=== PATIENT | female | born 1960 | race Two or more races ===

== ENCOUNTER → 2018-07-19 | Day surgery (SDC) | payer OTHER ==
[~2018-07-19] MED LIST: GLIM2TAB2 PO; INSU100V8 SQ; IV RINGERS,LACTATED 1000ML 1,000 ML IV SCH; LIDOCAINE 2% PF 5 ML VIAL. ONE; LIRA0.6P2 SQ; PROPOFOL 60 ML IV ONE
[2018-07-19 11:17] VITALS: BP 126/61
--- NOTE | 2018-07-20 17:07 | PATHOLOGY ---
[facility] Accession Number: [id number] . 01 Material submitted: . PART A: duodenum - 2ND PORTION DUODENUM. Modifiers: second PART B: duodenum bulb - DUODENAL BULB BIOPSY PART C: stomach - GASTRIC ANTRUM BIOPSY PART D: esophagus - DISTAL ESOPHAGUS BIOPSY. Modifiers: distal PART E: ileum - TERMINAL ILEUM BIOPSY PART F: colon - RIGHT COLON BIOPSY. Modifiers: right PART G: colon - LEFT COLON BIOPSY. Modifiers: left PART H: rectum - RECTAL POLYP . 01 Clinical history: . Nausea, abdomen pain/screening Esophagitis, see Dr. tompkins . 02 Diagnosis: A. Duodenal biopsies, second portion duodenum: - No significant pathologic abnormalities. . B. Duodenal biopsy, duodenal bulb: - Gastric heterotopia with mild chronic inflammation. . C. Gastric biopsies, antrum: - Very mild chronic gastritis. . D. Esophageal biopsies, distal esophagus: - Segment of esophagogastric mucosa showing squamous hyperplasia and moderate chronic inflammation consistent with reflux esophagitis, and segments of gastric mucosa showing mild chronic inflammation. . E. Terminal ileum biopsies: - No significant pathologic abnormalities. . F. Colonic mucosa, right colon biopsies: - No significant pathologic abnormalities. . G. Colonic mucosa, left colon biopsies: - No significant pathologic abnormalities. . H. Colorectal biopsies, rectal polyp: - Hyperplastic polyp. [facility]/07/20/2018 . 02 Comment: Sections of the second portion duodenal biopsy reveal segments of duodenal and small intestine mucosa. Where best oriented, the mucosal villi show no sprue-like changes or significant inflammatory changes. Sections of the duodenal bulb nodule biopsy show gastric heterotopia with mild chronic inflammation. There are no adenomatous changes or evidence of malignancy. Sections of the gastric antral biopsy show congestion and very mild chronic inflammation. A properly controlled immunoperoxidase stain for Helicobacter is negative for Helicobacter organisms. Sections of the distal esophageal biopsy reveal a segment of esophagogastric mucosa showing squamous hyperplasia and moderate chronic inflammation. There are a few intraepithelial eosinophils. The findings are consistent with reflux esophagitis. There are also two segments of gastric mucosa showing mild chronic inflammation. There is no evidence of Gutierrez's change, dysplasia, or malignancy. Sections of the terminal ileum biopsy reveal segments of small intestine mucosa with mucosal associated lymphoid tissue. Where best oriented, the mucosal villi show no sprue-like changes or significant inflammatory changes. Sections of the right colon and left left colon biopsies appear similar and reveal segments of colonic mucosa. There is no evidence of a chronic destructive colitis, lymphocytic colitis, or collagenous colitis. Sections of the rectal polyp biopsy reveal a hyperplastic polyp. (JPM/db; 07/20/2018) . Special stain performed: Immunoperoxidase stain for Helicobacter on C1 . 02 Electronically signed: . Peyman Gutierrez MD, Pathologist NPI- [id number] . 01 Gross description: . A. The specimen is received in formalin, labeled "Shelly Reid, second portion duodenum" and consists of 3 fragments of wick tissue measuring between 0.2 x 0.2 cm and 0.5 x 0.2 x 0.1 cm which are entirely submitted in A1. . B. The specimen is received in formalin, labeled "Shelly Reid, duodenal bulb BX" and consists of a fragment of wick tissue measuring 0.3 x 0.3 x 0.2 cm which is entirely submitted in B1. . C. The specimen is received in formalin, labeled "Shelly Reid, gastric antrum BX" and consists of 2 fragments of wick tissue measuring 0.2 x 0.2 cm and 0.6 x 0.2 x 0.1 cm which are entirely submitted in C1. . D. The specimen is received in formalin, labeled "Shelly Reid, distal esophagus BX" and consists of 3 fragments of wick tissue measuring between 0.3 x 0.2 cm and 0.6 x 0.4 x 0.1 cm which are entirely submitted in D1. . E. The specimen is received in formalin, labeled "Franklin, Shelly, terminal ileum BX" and consists of 2 fragments of wick tissue measuring 0.5 x 0.2 x 0.1 cm and 0.4 x 0.3 x 0.1 cm which are entirely submitted in B1. . F. The specimen is received in formalin, labeled "Shelly Reid, right colon BX" and consists of 4 fragments of wick tissue measuring between 0.4 x 0.2 x 0.1 cm and 0.7 x 0.2 x 0.1 cm which are entirely submitted in F1. . G. The specimen is received in formalin, labeled "Franklin, Shelly, left colon BX" and consists of 5 fragments of wick tissue measuring 0.9 x 0.5 x 0.2 cm in aggregate which are entirely submitted in G1. . H. The specimen is received in formalin, labeled "Franklin, Shelly, rectal polyp" and consists of 3 fragments of wick tissue measuring between 0.2 x 0.1 cm and 0.3 x 0.2 cm which are entirely submitted in H1. (SDY; 07/19/2018) SYU/SYU . 02 Pathologist provided ICD-10: K29.80, Q45.8, K29.50, K21.0, K62.1, R11.0, R10.9 . 02 CPT . 758994, 283869, 164835, 123075, 038692, 392583, 596877, 987113, [id number] Specimen Comment: A courtesy copy of this report has been sent to Specimen Comment: [phone], . Specimen Comment: Report sent to / DR DEMARCO Performed at: 01 [facility] [address] [address], [place], [place] [id number] MD Martin Quezada MD Phone: [phone] Performed at: 02 [facility] [address] [place], [place] [id number] MD Peyman Gutierrez MD Phone: [phone]
== END | disposition home or self-care (01) ==
LOC: SURG 08:31
PROVIDERS: ATTEND Internal Medicine Gastroenterology
DX: K62.1 Rectal polyp (principal); K57.30 Diverticulosis of large intestine without perforation or abscess without bleeding; K64.0 First degree hemorrhoids; K21.0 Gastro-esophageal reflux disease with esophagitis; K31.89 Other diseases of stomach and duodenum; K29.80 Duodenitis without bleeding; K29.50 Unspecified chronic gastritis without bleeding; E11.9 Type 2 diabetes mellitus without complications; D64.9 Anemia, unspecified; Z90.49 Acquired absence of other specified parts of digestive tract; Z90.710 Acquired absence of both cervix and uterus; Z98.51 Tubal ligation status; Z83.3 Family history of diabetes mellitus; Z82.49 Family history of ischemic heart disease and other diseases of the circulatory system; Z79.4 Long term (current) use of insulin; Z79.899 Other long term (current) drug therapy; Z98.890 Other specified postprocedural states
CPT/HCPCS: 43239; 45380; 88305; 88342; J2001; J2704

== ENCOUNTER → 2019-01-04 | Outpatient (CLI) | payer OTHER ==
[2018-07-19 11:17] VITALS: BP 126/61
[~2019-01-04] MED LIST changes: -GLIM2TAB2 PO; +GLIM2TAB3 PO; -IV RINGERS,LACTATED 1000ML 1,000 ML IV SCH; -LIDOCAINE 2% PF 5 ML VIAL. ONE; -PROPOFOL 60 ML IV ONE
--- NOTE | 2019-01-04 14:37 | KCIC ---
3 view study of the right shoulder Clinical indications: Right shoulder pain which is chronic and worsening over the last 2 months. FINDINGS: No acute fracture or dislocation or lytic process is evident. No AC joint separation is seen. No significant arthritic change is evident. IMPRESSION: No significant osseous abnormality. Electronically signed by: Jules Fan MD (01/04/2019 2:35 PM) [id number]
== END | disposition home or self-care (01) ==
LOC: KCIC 14:02
PROVIDERS: ATTEND Family Medicine
DX: M25.511 Pain in right shoulder (principal)
CPT/HCPCS: 73030

== ENCOUNTER → 2019-03-01 | Outpatient (CLI) | payer OTHER ==
[2018-07-19 11:17] VITALS: BP 126/61
--- NOTE | 2019-03-01 12:25 | KCIC ---
MRI right shoulder without contrast dated 03/01/2019. No comparison available. CLINICAL INDICATION: Right sided shoulder pain and limited range of motion for 6 months. TECHNIQUE: Routine multiplanar multisequence MR imaging performed. FINDINGS: T2 signal throughout the supraspinatus and infraspinatus portions of the rotator cuff. There is a small full-thickness tear of the supraspinatus footplate that measures about 1.7 cm AP dimension and 9 mm transverse. There is mild retraction of cuff fibers to about the 11:00 position. There is also likely involvement of the anterior margin of the infraspinatus. The subscapularis is thickened and intermediate in signal but otherwise intact. Mild hypertrophic change of the AC joint. Mild undersurface spurring of the acromium. The acromium is type II morphology. No significant subacromial/subdeltoid bursal fluid collection. There is intermediate T2 signal within the substance of the long head biceps tendon proximally. Extra articular biceps tendon courses within the bicipital groove. Glenoid labrum is grossly intact. No apparent labral tear or para labral cyst. No glenohumeral joint effusion or loose body. Suprascapular and spinoglenoid notches are clear. No significant muscle edema or muscle atrophy. IMPRESSION: 1. Rotator cuff tendinosis with small but fairly broad full-thickness tear of the supraspinatus footplate. There may be involvement of the anterior margin of the infraspinatus. 2. Mild AC joint arthropathy with mild undersurface spurring of the acromium. 3. Mild proximal biceps tendinosis. 4. No apparent labral tear. Electronically signed by: Oscar Delgadillo MD (03/01/2019 12:23 PM) [facility]-KCIC2
== END | disposition home or self-care (01) ==
LOC: KCIC MRI 10:50
PROVIDERS: ATTEND Orthopaedic Surgery Sports Medicine
DX: M19.011 Primary osteoarthritis, right shoulder (principal); M75.101 Unspecified rotator cuff tear or rupture of right shoulder, not specified as traumatic
CPT/HCPCS: 73221

== ENCOUNTER 2019-03-13 08:21 | Day surgery (SDC) | payer OTHER ==
[~2019-03-13] VITALS: Ht 154.9 cm; Wt 100.5 kg
[~2019-03-13 08:21] MED LIST changes: +BUPIVACAINE MPF 0.5% 30 ML VIAL. ONE; +DEXAMETHASONE SOD PHOS 20 MG/5 ML VIAL. ONE; +DEXAMETHASONE SOD PHOS 4 MG/ML VIAL ONE; +HYDROmorphone 2 MG/ML VIAL IV PRN; +IV RINGERS,LACTATED 1000ML 1,000 ML IV SCH; +LIDOCAINE 1% PF 2 ML VIAL. ID PRN; +LIDOCAINE 2% PF 5 ML VIAL. ONE; +MIDAZOLAM HCL/PF 2 MG/2 ML VIAL. ONE; +MORPHINE SULFATE 2 MG/ML VIAL. IV PRN; +ONDANSETRON PF 4 MG/2 ML VIAL. IV PRN; +ONDANSETRON PF 4 MG/2 ML VIAL. ONE; +PROCHLORPERAZINE 10 MG/2 ML VIAL. IV PRN; +PROPOFOL 20 ML IV ONE; +SEVOFLURANE 61 TO 120 MINUTES. IH ONE; +ceFAZolin 2GM PREMIX 2 GM/50 ML BAG IV ONE; +fentaNYL PF VIAL 100 MCG/2 ML VIAL IV PRN; +fentaNYL PF VIAL 100 MCG/2 ML VIAL ONE
[2019-03-13] MEDS ORDERED: LIDOCAINE 1% 20 ML VIAL. ONE (08:48)
[2019-03-13] MEDS ORDERED: EPINEPHrine VIAL 30 MG/30 ML VIAL ONE (08:49)
[2019-03-13] MEDS ORDERED: BUPIVACAINE MPF 0.5% 30 ML VIAL. ONE (08:49)
--- NOTE | 2019-03-13 08:53 | DISCH ---
DISCHARGE INSTRUCTIONS Condition on Discharge Condition on Discharge: Stable Activity After Discharge Activity Instructions for Disc: Other, see below Other activity instructions: arm to remain in sling Bathing Instructions: Shower-keep dressing dry Weight Bearing Status after Di: As tolerated Diet after Discharge Diet after Discharge: Regular Wound Incision Care Wound/Incision Care: Ice to area for comfort, Keep wound/cast CDI, Change dressing Other wound/incision instructi: okay to change dressing in [address] after DC Call your doctor for: Concerns you may have Follow-Up Follow up with: Mikal in 2 weeks GERMAN LAWS II, MD Mar 13, 2019 08:53
[2019-03-13] MEDS ORDERED: CHOL4POW3 PO (08:54)
[2019-03-13] MEDS: INSULIN LISPRO 100 UNIT/ML 3ML VIAL for OP,RR ONLY. SQ PRN ×3 (08:56→12:12)
[2019-03-13] MEDS ORDERED: BUPIVACAINE MPF 0.25% 30 ML VIAL. ONE (09:56)
[2019-03-13] MEDS ORDERED: KETOROLAC 30 MG/ML VIAL. ONE (09:57)
[2019-03-13] MEDS ORDERED: KETAMINE HCL IN NACL, ISO-OSM 50 MG/5 ML SYRINGE ONE (09:57)
[2019-03-13] MEDS ORDERED: PROPOFOL 20 ML IV ONE (09:59)
[2019-03-13] MEDS ORDERED: SCOPOLAMINE 1.5MG PATCH. TD ONE ×2 (11:26→11:30)
[2019-03-13] MEDS ORDERED: oxyCODONE/APAP 5/325 1 TAB TABLET PO ONE (12:00)
[2019-03-13] MEDS ORDERED: OXYC-325 PO (12:00)
[2019-03-13] MEDS ORDERED: ONDA8TAB9 SL (12:01)
[2019-03-13] MEDS ORDERED: DOCU-109 PO (12:01)
[2019-03-13] MEDS ORDERED: ALBUTEROL SULFATE 2.5 MG/3 ML NEBU. NEB ONE (12:10)
[2019-03-13 12:20] VITALS: BP 168/71
[2019-03-13] MEDS ORDERED: ALBUTEROL SULFATE 2.5 MG/3 ML NEBU. ONE ×3 (12:44→12:45)
--- NOTE | 2019-03-13 12:53 | PDOC4 ---
Operative Note Operative Note Date of procedure: 03/13/2019 Surgeon: Singh Laws Rn Observation: Jimi Pedraza, certified pharmacy tech Preoperative diagnosis: Right shoulder rotator cuff tear Postoperative diagnosis: same Procedure performed: Right shoulder arthroscopic rotator cuff repair Anesthesia: Gen. plus regional nerve block Findings: #1 bursal sided rotator cuff tear, approximately 2 cm in length #2 mild scuffing of the posterior labrum #3 unremarkable glenohumeral cartilage #4 labrum intact circumferentially #5 biceps tendon showed some tendinitis but no tears. Blood loss: 10mL Components inserted: [employer] Helacoil anchor x 2 Reason for procedure: Patient is a very pleasant woman who has had worsening right shoulder pain. Clinical and radiographic examination, including MRI were consistent with the preoperative diagnosis. She had tried physical therapy, anti-inflammatories, and an injection and these did not give her good relief. Due to her symptoms and dysfunction, we had a discussion of the risks, benefits, alternatives the above surgery and he wished to proceed. Description of procedure: Patient was greeted in the preoperative holding area where the correct extremity was verified and marked. They were taken to the preoperative holding area where the anesthesiology team placed a regional nerve block. The patient was then taken back to the operative suite and antibiotics were started as they were brought back. Once in the operative room, the patient was transferred gently supine to the operating room table after successful induction of a general anesthetic. After this, she was sat up in a beachchair position maintaining her C-spine in neutral position, large pad under his legs, she was secured to the bed. We then prepped and draped her right upper extremity and shoulder girdle in our usual sterile fashion, we conducted our standard preoperative timeout. I palpated and marked surface anatomy for my planned portal sites. I then used a spinal needle to localize a posterior superior portal and incised skin in accordance with this. After this, I introduced the blunt arthroscopic trocar into the glenohumeral joint followed by the camera. I used a spinal needle to localize an anterosuperior portal and incised skin in accordance with this. I then introduced my arthroscopic probe and conducted my diagnostic arthroscopy with the above-noted findings. Next, I passed a PDS through the abnormal appearing portion of the supraspinatus. After this, I repositioned the camera into the subacromial space and performed a bursectomy with combination of shaver and electrocautery device. I then identified the rotator cuff tear and I debrided the pathologic tendon and prepared my footprint. I then placed my helacoil anchors and shuttled limbs through in a simple configuration. I tied these down with arthroscopic knot-tying techniques. The tear was stable to probing and to gentle rotation of the arm. I then removed all loose bony debris and the excess arthroscopic fluid. I took my final pictures prior to this. After this, all the excess fluid and instrumentation was removed. The portals were closed with simple interrupted 3-0 nylon. Sterile dressing was applied followed by an abduction pillow sling. Patient tolerated surgery well. No complications. At the conclusion, she was laid supine and transferred gently supine to the recovery room cart and taken to the PACU in a stable and extubated condition. Postoperative plan is discharge her home, nonweightbearing for 6 weeks. Well get her started on physical therapy. She will follow up with me in 2 weeks, sooner should a problem arise. SINGH LAWS II, MD Mar 13, 2019 12:53
== END 2019-03-13 13:35 | disposition home or self-care (01) ==
LOC: SURG 08:21
PROVIDERS: ATTEND Orthopaedic Surgery Sports Medicine
DX: M75.111 Incomplete rotator cuff tear or rupture of right shoulder, not specified as traumatic (principal); M75.21 Bicipital tendinitis, right shoulder; E11.9 Type 2 diabetes mellitus without complications; Z79.84 Long term (current) use of oral hypoglycemic drugs
CPT/HCPCS: 29827; 64415; 82962; 94640; A7015; C1713; C1782; J0171; J0696; J0780; J1100; J1885; J2001; J2250; J2405; J2704; J3010; J3490; J7613